=== PATIENT | female | born 1990 | race Caucasian/White ===

== ENCOUNTER 2017-12-07 15:57 | Outpatient (CLI) | payer BC | END 2017-12-07 15:58 | disposition home or self-care (01) | LOC: BICMRI 15:57 | PROVIDERS: ATTEND Neurological Surgery | DX: M51.36 Other intervertebral disc degeneration, lumbar region (principal) | CPT/HCPCS: 72148 ==

== ENCOUNTER 2018-09-14 13:28 | Outpatient (CLI) | payer BC ==
--- NOTE | 2018-09-14 13:47 | RAD ---
XR Chest Pa Lat @ [facility] History: [Dyspnea] Comparison: None. Findings: Lungs are clear. No pneumothorax or effusion. Cardiac silhouette and mediastinal contours a re within normal limits. No acute osseous abnormality. Impression: No acute intrathoracic abnormality.
== END 2018-09-14 13:29 | disposition home or self-care (01) ==
LOC: RAD 13:28
PROVIDERS: ATTEND Internal Medicine Critical Care Medicine
DX: R06.00 Dyspnea, unspecified (principal)
CPT/HCPCS: 71046

== ENCOUNTER 2018-12-07 12:47 | Outpatient (CLI) | payer BC | END 2018-12-07 12:48 | disposition home or self-care (01) | LOC: CP 12:47 → ULT 12:48 | PROVIDERS: ATTEND Internal Medicine Critical Care Medicine | DX: I27.20 Pulmonary hypertension, unspecified (principal); R06.09 Other forms of dyspnea | CPT/HCPCS: 93306; 94060; 94727; 94729 ==

== ENCOUNTER 2020-06-28 07:31 | Outpatient (CLI) | payer BC ==
[2020-06-28] MEDS ORDERED: Iopamidol-370 76% 500 ML 1 ML ONE (14:42)
== END 2020-06-28 07:32 | disposition home or self-care (01) ==
LOC: BICCT 07:31
PROVIDERS: ATTEND Internal Medicine
DX: R10.31 Right lower quadrant pain (principal); K63.89 Other specified diseases of intestine; N83.202 Unspecified ovarian cyst, left side
CPT/HCPCS: 74177; Q9967